=== PATIENT | female | born 1995 | race Caucasian/White ===

== ENCOUNTER 2023-02-26 08:04 | Outpatient (OUT) | payer OTHER, SELFPAY ==
[2023-02-26 08:31] LABS: Glucose Fasting 94 mg/dL (74-106)
[2023-02-26 10:21] LABS: Glucose 1 Hour 202 mg/dL
[2023-02-26 11:01] LABS: Glucose 2 Hour 180 mg/dL
== END 2023-02-26 08:05 ==
LOC: LAB 08:07
PROVIDERS: PCP Family Medicine; Visit Provider Obstetrics & Gynecology
DX: O99.810 Abnormal glucose complicating pregnancy (principal)
CPT/HCPCS: 36415; 82951; 82952